=== PATIENT | male | born 1985 | race Caucasian/White ===

== ENCOUNTER 2021-02-26 14:48 | Outpatient (REF) | payer BC, SELFPAY | END 2021-02-26 14:49 | disposition home or self-care (01) | LOC: LBN 14:48 | PROVIDERS: Visit Provider Physician Assistant Medical | DX: U07.1 COVID-19 (principal); J02.9 Acute pharyngitis, unspecified | CPT/HCPCS: 87070 ==

== ENCOUNTER 2023-07-31 16:49 | Emergency (ER) | payer BC, SELFPAY ==
[2023-07-31 16:57] VITALS: BP 147/88; PULSE 93; RESP 18; TEMP 36.6; O2SAT 98
--- NOTE | 2023-07-31 17:58 | ED.GENADUL_ITS ---
Discharge Plan Disposition Patient Disposition: Home Condition: Stable Discharge Details Clinical Impression: Eye foreign bodies, Corneal irritation of right eye Primary Care Provider: Luci Finch ED Provider: Rosalinda Daniel Discharge Instructions Instructions: Foreign Body in Eye ED Additional Instructions: At this time no visualized foreign body in the eye, you do have some irritation noted to your cornea but no corneal abrasion. Continue to gently irrigate eye out couple times a day. If continued concerns you may follow-up with [facility] eye care. Do not rub your eye. Thank you for allowing us to care for you today. Referrals: [facility], [facility] [Outside] - Return if symptoms worsen Luci Finch [Primary Care Provider] - Return if symptoms worsen Discharge Data Discharge Date/Time-TO BE ENTERED AT DEPARTURE: 07/31/23 18:22 HPI General Mode of arrival: ambulatory . Date/Time Provider Initiated Documentation: 07/31/23 17:16 . Limitations to Documentation: no limitations . Information obtained by: patient, RN notes reviewed and old records reviewed . HPI Narrative: 38-year-old male presents to the ER with a chief complaint of foreign body sensation noted to his right eye after working with a chainsaw cutting some wood around 1 PM today. He is concerned that there may be a splinter in his upper eyelid, or saw dust in his eye. He describes this as moderate, no significant past medical history surgeries or meds. He is allergic to penicillin. Related Data Allergies Allergy/AdvReac Type Severity Reaction Status Date / Time Penicillins AdvReac Unknown Other (See Verified 07/31/23 17:00 Comment) General Stated Complaint: EyeProblem COLE: 4 Review of Systems All systems reviewed & are unremarkable except as noted in HPI and below Eyes Eyes: Denies eye discharge, Reports irritation, Reports itchy eyes and Denies seeing flashes Allergic/Immunologic Allergic/Immunologic: Reports itchy eyes Exam Const General: cooperative, healthy appearing and comfortable Nutritional Appearance: average body habitus Orientation: alert, awake and oriented x3 HENMT Head: normal to inspection, no Mauro's sign and no contusions Ears: external ears normal General nose exam: external nose normal, nares normal and no nasal discharge Face and sinus: normal facial exam, face symmetric, no erythema, no edema, no lacerations, no sinus tenderness and no tenderness Eyes Visual Sun: normal visual sun by confrontation Alignment and Position: alignment normal and position normal Periorbital: periorbital findings normal Eyelids: eyelids normal Conjunctivae: conjunctival abnormality right conjunctival injection diffuse (Medially and Laterally); without discharge Sclera: sclerae normal and scleral abnormality right scleral injection medial and lateral; without foreign bodies (None visualized) Cornea: corneas normal Pupils: PERRL, normal by confrontation, accommodation normal and pupil size on the right 3 EOM: EOM intact bilaterally Direct ophthalmoscopy: normal light reflex Course Vital Signs Vital signs: Vital Signs Temperature 36.6 C 07/31/23 16:57 Pulse 93 H 07/31/23 16:57 Respiratory Rate 18 07/31/23 16:57 Blood Pressure 147/88 H 07/31/23 16:57 Pulse Oximetry 98 07/31/23 16:57 Temperature 36.6 C 07/31/23 16:57 Pulse 93 H 07/31/23 16:57 Respiratory Rate 18 07/31/23 16:57 Respiratory Effort Normal 07/31/23 17:08 Blood Pressure 147/88 H 07/31/23 16:57 Blood Pressure Position Sitting 07/31/23 16:57 Pulse Oximetry 98 07/31/23 16:57 Oxygen Delivery Method Room Air 07/31/23 16:57 Oxygen Flow Rate 0 07/31/23 16:57 Medical Decision Making 38-year-old male presents to the ER with a chief complaint of foreign body sensation noted to his right eye after working with a chainsaw cutting some wood around 1 PM today. He is concerned that there may be a splinter in his upper eyelid, or saw dust in his eye. Gilmore lamp, tetracaine placed, fluorescein drops. No uptake and dye noted no corneal abrasion, no visualized foreign body seen. Eyelid flipped, no foreign body noted. Discussed home care, follow-up care and strict return instructions patient and family verbalized understanding. This text was generated using [employer] dictation system, please disregard any oddities of phrase or misspellings. Quality:SDOH Health Related Social Needs: No Data to Display PFSH All Active Problems (Updated 07/31/23 @ 18:18 by Rosalinda Daniel NP) Corneal irritation of right eye (Acute) Eye foreign bodies (Acute) Social History Smoking/Tobacco Use Status: Never Smoking risk assessment performed?: Yes Alcohol Intake: current Alcohol Intake frequency: holidays/special occasions only Substance use type: does not use
[2023-07-31] MEDS: Balanced Salt Solution 15 ML BTL OP (18:19)
[2023-07-31] MEDS: Fluorescein STRIPS 100/BOX 1 MG OP (18:20)
== END 2023-07-31 18:22 | disposition home or self-care (01) ==
PROVIDERS: Emergency Provider Registered Nurse Emergency; PCP Nurse Practitioner Adult Health
DX: H57.11 Ocular pain, right eye (principal); H18.891 Other specified disorders of cornea, right eye; W31.2XXA Contact with powered woodworking and forming machines, initial encounter
CPT/HCPCS: 99283